=== PATIENT | female | born 1990 | race Two or more races ===

== ENCOUNTER 2017-07-28 13:24 | Emergency (ER) | payer SELFPAY ==
--- NOTE | 2017-07-28 13:40 | EDPHY ---
H & P Smoking Status: Current every day smoker Time Seen by Provider: 07/28/17 13:33 HPI/ROS: CHIEF COMPLAINT: Neck mass HISTORY OF PRESENT ILLNESS: Patient is a 26-year-old female who presents emergency department with swelling on the left side of her neck. Patient stated the swelling started 2 weeks ago. It is progressively worsened. She was seen by her primary care physician on Monday and started on prednisone and Keflex. She is taking her medications as directed. She has increasing swelling on the left side of her neck. She also has 1 smaller cyst inferior at the base of her neck. No discharge. No fevers or chills. No shortness of breath or difficulty swallowing. The patient feels no swelling in her throat or mouth. She describes mild discomfort. No radiation of pain. REVIEW OF SYSTEMS: My complete review of systems is negative except as mentioned in the HPI. ( Nessa Gupta) Past Medical/Surgical History: Negative (Nessa Gupta) Physical Exam: Vitals noted GENERAL: Well-appearing, in no acute distress, alert. HEENT: Eyes normal to inspection, normal pharynx, no signs of dehydration. Her left external auditory canal is normal. TM is negative. NECK: Patient has marked swelling on the left side of her neck. This is firm to touch. No fluctuance. No warmth or erythema. At the base of her left neck she has a small cyst that is not open. There is no drainage. No surrounding warmth. No thyroid megaly. RESPIRATORY: Clear to auscultation bilaterally, no rales, rhonchi or wheezing. CVS: Regular rate and rhythm, no rubs, murmurs, or gallops. ABDOMEN: Soft, nontender, nondistended, no organomegaly. BACK: Normal to inspection, no CVA tenderness. SKIN: Normal color, no rash, warm, dry. No pallor. EXTREMITIES: No pedal edema, no calf tenderness, no Homans sign or cords, no joint swelling. NEURO/PSYCH: Alert and oriented, normal mood and affect, normal motor sensory exam. No obvious cranial nerve deficit. (Nessa Gupta) Constitutional: Initial Vital Signs Temperature (C) 36.5 C 07/28/17 13:33 Heart Rate 96 07/28/17 13:33 Respiratory Rate 20 07/28/17 13:33 Blood Pressure 127/71 H 12/22/17 13:33 O2 Sat (%) 99 07/28/17 13:33 O2 Delivery Mode Room Air Allergies/Adverse Reactions: No Known Allergies Allergy (Unverified 07/28/17 13:33) Home Medications: Medication Instructions Recorded Clindamycin HCl [Clindamycin] 300 mg PO TID 10 Days cap 07/28/17 Keflex 07/28/17 predniSONE 07/28/17 Medical Decision Making - Diagnostics Imaging Results: Imaging Impressions Neck CT 07/28/17 13:41 Impression: Left parotid enlargement (parotitis) with likely adjacent reactive adenopathy, but without abscess formation. Results reviewed with Dr. Gupta. General information for patients regarding this examination can be found at [email or web address]. If you have questions or comments about this report, please contact me at (hospital) or [phone] (cell). ED Course/Re-evaluation: In the emergency department I discussed possible etiologies with the patient. I answered all her questions. IV was placed. Laboratory studies were obtained. I ordered a CT with IV contrast of the patient's neck. Patient's white count was elevated at 12. CT soft tissue of the neck with IV contrast: Please refer the dictated report by Dr. Mcdowell. Patient has reactive cervical lymphadenopathy on the left. She has a markedly enlarged left parotid gland. There is no visible fluid or abscess. There is no visible sign of stone. ENT was paged. I discussed the results with the patient. Answered all her questions. The patient is signed out at change of shift to Dr. Medina. We are awaiting callback by ENT with direction further treatment. (Nessa Gupta) Differential Diagnosis: My differential includes but is not limited to lymphadenitis, lymphadenopathy, mono, abscess, cellulitis, lymphoma (Nessa Gupta) Other Provider: I contacted the ENT on-call Dr. Gutiérrez He recommended covering the patient for a potential staphylococcal infection. Patient was given a 1st dose of vancomycin 1500 mg in the emergency department Discharged home on clindamycin 300 mg three times daily times [address] Gutiérrez is able and willing to see the patient on MondayAugust 01, however the patient will be traveling from July 30 to August 06. I recommend that she call on [facility] and arrange for follow-up upon her return if possible. Dr. Gutiérrez additionally recommended warm compresses, massaging the parotid gland and sialagogues. (Heike Medina) - Data Points Laboratory Results: Laboratory Results 07/28/17 14:10 07/28/17 14:10 07/28/17 07/28/17 07/28/17 14:10 14:10 14:10 WBC 12.78 10^3/uL H 10^3/uL (3.80-9.50) RBC 4.29 10^6/uL 10^6/uL (4.18-5.33) Hgb 13.2 g/dL g/dL (12.6-16.3) Hct 39.5 % % (38.0-47.0) MCV 92.1 fL fL (81.5-99.8) MCH 30.8 pg pg (27.9-34.1) MCHC 33.4 g/dL g/dL (32.4-36.7) RDW 13.4 % % (11.5-15.2) Plt Count 264 10^3/uL 10^3/uL (150-400) MPV 9.2 fL fL (8.7-11.7) Neut % (Auto) 84.9 % H % (39.3-74.2) Lymph % (Auto) 7.9 % L % (15.0-45.0) [place] % (Auto) 5.4 % % (4.5-13.0) Eos % (Auto) 1.2 % % (0.6-7.6) Baso % (Auto) 0.4 % % (0.3-1.7) Nucleat RBC Rel Count 0.0 % % (0.0-0.2) Absolute Neuts (auto) 10.85 10^3/uL H 10^3/uL (1.70-6.50) Absolute Lymphs (auto) 1.01 10^3/uL 10^3/uL (1.00-3.00) Absolute Monos (auto) 0.69 10^3/uL 10^3/uL (0.30-0.80) Absolute Eos (auto) 0.15 10^3/uL 10^3/uL (0.03-0.40) Absolute Basos (auto) 0.05 10^3/uL 10^3/uL (0.02-0.10) Absolute Nucleated RBC 0.00 10^3/uL 10^3/uL (0-0.01) Immature Gran % 0.2 % % (0.0-1.1) Immature Gran # 0.03 10^3/uL 10^3/uL (0.00-0.10) Sodium 140 mEq/L mEq/L (134-144) Potassium 3.4 mEq/L L mEq/L (3.5-5.2) Chloride 99 mEq/L mEq/L (97-110) Carbon Dioxide 27 mEq/l mEq/l (22-31) Anion Gap 14 mEq/L mEq/L (8-16) BUN 9 mg/dL mg/dL (7-23) Creatinine 0.7 mg/dL mg/dL (0.6-1.0) Estimated GFR > 60 Glucose 86 mg/dL mg/dL (70-100) Calcium 9.0 mg/dL mg/dL (8.5-10.4) Beta HCG, Qual NEGATIVE Monoscreen NEGATIVE (NEGATIVE) Medications Given: Vancomycin HCl 1.5 gm/ Sodium (Chloride) 250 mls @ 166.67 mls/hr IV EDNOW ONE PRN Reason: Protocol Stop: 07/28/17 17:01 Last Admin: 07/28/17 15:44 Dose: 250 mls Discontinued Medications Vancomycin HCl 1.5 gm/ Sodium (Chloride) 500 mls @ 333.333 mls/hr IV EDNOW ONE PRN Reason: Protocol Stop: 07/28/17 17:00 Last Admin: 07/28/17 15:46 Dose: Not Given Departure - Departure Disposition: Home, Routine, Self-Care Clinical Impression: Parotitis Condition: Good Instructions: Sialoadenitis (ED) Additional Instructions: Call on Monday to arrange follow up for when you return. Clindamycin three times a day for 10 days Probiotics twice daily. Referrals: Werner Gutiérrez MD [Medical Doctor] - 2-3 days, call for appt. Prescriptions: Clindamycin HCl [Clindamycin] 300 mg PO TID 10 Days cap
[2017-07-28] MEDS ORDERED: IOPAMIDOL (ISOVUE-300) 100 ML BTL ONE (13:54)
[2017-07-28 14:15] LABS: PLATELET COUNT 264 10^3/uL (150-400)
[2017-07-28] MEDS ORDERED: VANCOMYCIN 1.5 GM in NS 500 ML IV ONE (15:31)
[2017-07-28] MEDS ORDERED: VANCOMYCIN 1.5 GM in NS 250 ML IV ONE (15:32)
[2017-07-28 17:21] VITALS: BP 122/67; PULSE 72; RESP 19; TEMP 97.9; O2SAT 95
== END 2017-07-28 17:53 | disposition home or self-care (01) ==
LOC: CED 13:24
DX: K11.20 Sialoadenitis, unspecified (principal); F17.200 Nicotine dependence, unspecified, uncomplicated
CPT/HCPCS: 70491-PO; 80048-PO; 84703-PO; 85025-PO; 86308-PO; 96365; 96366; J3370; Q9967